=== PATIENT | male | born 1970 | race Caucasian/White ===

== ENCOUNTER 2017-09-09 08:16 | Day surgery (SDC) | payer OTHER ==
[2017-09-09] MEDS ORDERED: CLOP75TA16 PO (09:23)
[2017-09-09] MEDS ORDERED: ATOR80TA PO (09:23)
[2017-09-09] MEDS ORDERED: ASPI-1159 PO (09:23)
[2017-09-09] MEDS ORDERED: FENTANYL CITRATE/PF 50MCG/ML 2ML VIAL ONE (10:14)
[2017-09-09] MEDS ORDERED: MIDAZOLAM HCL 5 MG/5 ML VIAL ONE (10:14)
[2017-09-09] MEDS ORDERED: TETRACAINE/BENZOCAINE/BUTAMBEN 20 GM SPRAY MM ONE ×2 (10:16→10:41)
[2017-09-09] MEDS ORDERED: LIDOCAINE HCL 2% JELLY 5ML ONE (10:17)
== END 2017-09-09 13:30 | disposition home or self-care (01) ==
LOC: CARD 08:16
PROVIDERS: ATTEND Specialist
DX: R94.39 Abnormal result of other cardiovascular function study (principal); E78.4 Other hyperlipidemia; I10 Essential (primary) hypertension; I77.89 Other specified disorders of arteries and arterioles; Z79.899 Other long term (current) drug therapy; Z86.73 Personal history of transient ischemic attack (TIA), and cerebral infarction without residual deficits; Z79.82 Long term (current) use of aspirin
CPT/HCPCS: 93312; 99152; J2250; J3010